=== PATIENT | female | born 1965 | race Hispanic/Latino ===

== ENCOUNTER 2017-10-15 12:55 | Emergency (ER) | payer MEDICAID, OTHER ==
[~2017-10-15 12:55] MED LIST: AMOX-429 PO; ASPI-1012 PO; CAPT50TA3 PO; CIPOTIC OT; LISI-617 PO; METF10004 PO; PRAV20TA4 PO
== END 2017-10-15 14:53 | disposition home or self-care (01) ==
LOC: EDH 12:55
DX: S60.222A Contusion of left hand, initial encounter (principal); E11.9 Type 2 diabetes mellitus without complications; I10 Essential (primary) hypertension; Z98.890 Other specified postprocedural states; Z72.0 Tobacco use; W22.8XXA Striking against or struck by other objects, initial encounter; Y93.89 Activity, other specified; Y92.89 Other specified places as the place of occurrence of the external cause; Y99.8 Other external cause status
CPT/HCPCS: 73130

== ENCOUNTER 2017-11-03 18:28 | Emergency (ER) | payer SELFPAY ==
[2017-11-03] MEDS ORDERED: ORPHENADRINE CITRATE 30 MG/ML ML ONE (19:29)
[2017-11-03] MEDS ORDERED: ACETAMINOPHEN 325 MG TAB ONE (19:29)
[2017-11-03] MEDS ORDERED: ASPIRIN 325 MG TABLET ONE (19:29)
[2017-11-03 19:39] LABS: BASOPHILS % (AUTO) 1.1 % (0.0-5.0); EOSINOPHILS % (AUTO) 1.8 % (0.0-8.0); HEMATOCRIT 43.4 % (36-48); LYMPHOCYTES % (AUTO) 38.6 % (21.0-51.0); MEAN CORPUSCULAR HEMOGLOBIN 31.7 pg (27.0-33.0); MEAN CORPUSCULAR HGB CONC 34.8 g/dL (32.0-36.0); MEAN CORPUSCULAR VOLUME 91.1 fL (79-99); MONOCYTES % (AUTO) 6.6 % (3.0-13.0); NEUTROPHILS % (AUTO) 51.9 % (40.0-77.0); PLATELET COUNT (AUTO) 169 K/uL (130-400); RED BLOOD CELL COUNT(AUTO) 4.76 MIL/uL (4.00-5.50); RED CELL DISTRIBUTION WIDTH 13.5 % (11.0-15.5); WHITE BLOOD COUNT (AUTO) 10.2 K/uL (4.8-10.8)
[2017-11-03 19:56] LABS: APPEARANCE,URINE Clear (CLEAR); BILIRUBIN,URINE Negative (NEGATIVE); COLOR,URINE Yellow (YELLOW); GLUCOSE, URINE (UA) >=1000 mg/dL (NEGATIVE); KETONES,URINE Negative (NEGATIVE); LEUKOCYTE ESTERASE ,URINE Negative (NEGATIVE); NITRATE,URINE Negative (NEGATIVE); OCCULT BLOOD,URINE Negative (NEGATIVE); PROTEIN,URINE Negative (NEGATIVE)
[2017-11-03 19:57] LABS: INR 0.95 (0.85-1.15); PARTIAL THROMBOPLASTIN TIME 24.3 SEC (26.3-35.5)
[2017-11-03 20:03] LABS: B-TYPE NATRIURETIC PEPTIDE 11 pg/mL (0-100)
[2017-11-03 20:23] LABS: BACTERIA,URINE Rare /HPF (None Seen); RBC,URINE 0-1 /HPF (0-1); SQUAMOUS EPITHELIAL CELL,UR Rare /LPF (0-2); YEAST,URINE BUDDING Rare /HPF (None Seen)
[2017-11-03 20:29] LABS: ALANINE AMINOTRANSFERASE 21 U/L (12-78); ALBUMIN 3.3 g/dL (3.5-5.0); ASPARTATE AMINOTRANSFERASE 12 U/L (10-37); BILIRUBIN,TOTAL 0.3 mg/dL (0.2-1.0); CARBON DIOXIDE 28 mmol/L (21-32); CHLORIDE 101 mmol/L (101-111); CREATINE KINASE MB < 0.5 ng/mL (0.5-3.6); CREATINE KINASE, TOTAL 59 U/L (21-232); CREATININE 0.8 mg/dL (0.5-1.5); GLOMERULAR FILTR. RATE CALC 80 mL/min (>60); MYOGLOBIN 9 ng/mL (10-92); POTASSIUM 4.2 mmol/L (3.5-5.1); SODIUM SERUM 137 mmol/L (136-145); TOTAL PROTEIN, SERUM 6.9 g/dL (6.0-8.3); UREA NITROGEN, BLOOD 14 mg/dL (7-18)
[2017-11-03 20:40] LABS: GLUCOSE,RANDOM 411 mg/dL (70-105)
[2017-11-03] MEDS ORDERED: INSULIN HUMULIN R 100 UNIT/ML 3ML ONE (21:03)
== END 2017-11-03 22:41 | disposition home or self-care (01) ==
LOC: EDH 18:28
DX: R07.89 Other chest pain (principal); M54.2 Cervicalgia; E11.9 Type 2 diabetes mellitus without complications; I10 Essential (primary) hypertension; Z72.0 Tobacco use
CPT/HCPCS: 36415; 71045; 80053; 81001; 82550; 82553; 82948; 83874; 83880; 84484 ×2; 85025; 85610; 85730; 93005 ×2; 94761; 96361; 96374; 96375; 99285; J1815; J2360

== ENCOUNTER 2018-06-23 15:38 | Emergency (ER) | payer OTHER ==
[~2018-06-23 15:38] MED LIST changes: +METF-446 PO; -METF10004 PO
[2018-06-23] MEDS ORDERED: ASPIRIN 325 MG TABLET ONE (16:16)
[2018-06-23] MEDS ORDERED: SODIUM CHLORIDE 0.9% 1000ML 1,000 ML IV ONE ×2 (16:16→18:37)
[2018-06-23] MEDS ORDERED: NITROGLYCERIN 0.4 MG SL TAB SL ONE (16:16)
[2018-06-23 16:28] LABS: BASOPHILS % (AUTO) 0.9 % (0.0-5.0); EOSINOPHILS % (AUTO) 1.8 % (0.0-8.0); HEMATOCRIT 42.9 % (36-48); LYMPHOCYTES % (AUTO) 38.8 % (21.0-51.0); MEAN CORPUSCULAR HEMOGLOBIN 31.9 pg (27.0-33.0); MEAN CORPUSCULAR HGB CONC 34.6 g/dL (32.0-36.0); MONOCYTES % (AUTO) 7.7 % (3.0-13.0); NEUTROPHILS % (AUTO) 50.8 % (40.0-77.0); NUCLEATED RED BLOOD CELLS 0.1 % (0.0-0.19); PLATELET COUNT (AUTO) 195 K/uL (130-400); RED BLOOD CELL COUNT(AUTO) 4.66 MIL/uL (4.00-5.50); WHITE BLOOD COUNT (AUTO) 8.8 K/uL (4.8-10.8)
[2018-06-23 16:53] LABS: ALANINE AMINOTRANSFERASE 19 U/L (12-78); ALBUMIN 3.5 g/dL (3.5-5.0); ASPARTATE AMINOTRANSFERASE 11 U/L (10-37); BILIRUBIN,TOTAL 0.1 mg/dL (0.2-1.0); CARBON DIOXIDE 27 mmol/L (21-32); CHLORIDE 100 mmol/L (101-111); CREATINE KINASE MB < 0.5 ng/mL (0.5-3.6); CREATINE KINASE, TOTAL 59 U/L (21-232); CREATININE 0.6 mg/dL (0.5-1.5); GLOMERULAR FILTR. RATE CALC 111 mL/min (>60); POTASSIUM 3.8 mmol/L (3.5-5.1); SODIUM SERUM 136 mmol/L (136-145); TOTAL PROTEIN, SERUM 7.5 g/dL (6.0-8.3); UREA NITROGEN, BLOOD 12 mg/dL (7-18)
[2018-06-23 16:56] LABS: GLUCOSE,RANDOM 407 mg/dL (70-105)
[2018-06-23 17:04] LABS: INR 0.89 (0.85-1.15); PARTIAL THROMBOPLASTIN TIME 24.9 SEC (26.3-35.5); PROTHROMBIN TIME 9.4 SEC (9.6-11.6)
[2018-06-23] MEDS ORDERED: INSULIN HUMULIN R 100 UNIT/ML 3ML ONE (18:38)
[2018-06-23 19:03] LABS: APPEARANCE,URINE Clear (CLEAR); BILIRUBIN,URINE Negative (NEGATIVE); COLOR,URINE Yellow (YELLOW); GLUCOSE, URINE (UA) >=1000 mg/dL (NEGATIVE); KETONES,URINE Negative (NEGATIVE); LEUKOCYTE ESTERASE ,URINE Trace (NEGATIVE); NITRATE,URINE Negative (NEGATIVE); OCCULT BLOOD,URINE Negative (NEGATIVE); PH,URINE 5.5 (5.0-8.0); PROTEIN,URINE Negative (NEGATIVE); UROBILINOGEN,URINE 0.2 mg/dL (0.2-1.0)
[2018-06-23 19:29] LABS: RBC,URINE 0-1 /HPF (0-1)
[2018-06-23 19:30] LABS: BACTERIA,URINE Rare /HPF (None Seen); SQUAMOUS EPITHELIAL CELL,UR Rare /HPF (0-2); TRICHOMONAS,URINE Rare /LPF (None Seen)
== END 2018-06-23 20:20 | disposition home or self-care (01) ==
LOC: EDH 15:38
DX: E11.65 Type 2 diabetes mellitus with hyperglycemia (principal); R07.89 Other chest pain; R53.81 Other malaise; R53.83 Other fatigue; I10 Essential (primary) hypertension; Z72.0 Tobacco use
CPT/HCPCS: 36415; 71045; 80053; 81001; 82550; 82553; 82948; 84484 ×2; 85025; 85378; 85610; 85730; 93005; 94761; 96361; 96374; 99285; J1815; J7030 ×2

== ENCOUNTER 2018-09-30 10:25 | Emergency (ER) | payer SELFPAY ==
[2018-09-30] MEDS ORDERED: IPRATROPIUM/ALBUTEROL SULFATE 3 ML SOLUTION IH ONE (11:12)
[2018-09-30] MEDS ORDERED: ASPIRIN 325 MG TABLET ONE (11:45)
== END 2018-09-30 12:20 | disposition home or self-care (01) ==
LOC: EDH 10:25
DX: R07.89 Other chest pain (principal); R05 Cough; E11.9 Type 2 diabetes mellitus without complications; I10 Essential (primary) hypertension; E78.5 Hyperlipidemia, unspecified; Z98.890 Other specified postprocedural states; Z72.0 Tobacco use
CPT/HCPCS: 71045; 84484; 93005; 94640

== ENCOUNTER 2018-11-25 19:58 | Emergency (ER) | payer SELFPAY ==
[2018-11-25] MEDS ORDERED: ONDANSETRON ODT 4 MG TAB ONE (20:26)
[2018-11-25] MEDS ORDERED: CLINDAMYCIN HCL 150 MG CAP ONE (20:26)
== END 2018-11-25 20:46 | disposition home or self-care (01) ==
LOC: EDH 19:58
DX: N61.0 Mastitis without abscess (principal); E11.9 Type 2 diabetes mellitus without complications; E78.5 Hyperlipidemia, unspecified; I10 Essential (primary) hypertension; Z72.0 Tobacco use

== ENCOUNTER 2019-04-06 18:19 | Emergency (ER) | payer SELFPAY ==
[2019-04-06] MEDS ORDERED: ASPIRIN 325 MG TABLET ONE (18:54)
[2019-04-06] MEDS ORDERED: ACETAMINOPHEN EXTRA STRENGTH 500 MG TABLET ONE (18:54)
[2019-04-06 19:02] LABS: BASOPHILS % (AUTO) 0.8 % (0.0-5.0); EOSINOPHILS % (AUTO) 0.7 % (0.0-8.0); HEMATOCRIT 39.1 % (36-48); LYMPHOCYTES % (AUTO) 29.5 % (21.0-51.0); MEAN CORPUSCULAR HEMOGLOBIN 32.1 pg (27.0-33.0); MEAN CORPUSCULAR HGB CONC 34.4 g/dL (32.0-36.0); MEAN CORPUSCULAR VOLUME 93.5 fL (79-99); MONOCYTES % (AUTO) 8.5 % (3.0-13.0); NEUTROPHILS % (AUTO) 60.5 % (40.0-77.0); NUCLEATED RED BLOOD CELLS 0.1 % (0.0-0.19); PLATELET COUNT (AUTO) 177 K/uL (130-400); RED BLOOD CELL COUNT(AUTO) 4.18 MIL/uL (4.00-5.50); RED CELL DISTRIBUTION WIDTH 13.7 % (11.0-15.5); WHITE BLOOD COUNT (AUTO) 9.3 K/uL (4.8-10.8)
[2019-04-06 19:09] LABS: INR 0.9 (0.85-1.15); PROTHROMBIN TIME 9.5 SEC (9.6-11.6)
[2019-04-06 19:15] LABS: CREATININE 0.6 mg/dL (0.5-1.5); POTASSIUM 4.1 mmol/L (3.5-5.1)
[2019-04-06 19:25] LABS: PARTIAL THROMBOPLASTIN TIME 25.2 SEC (26.3-35.5)
[2019-04-06 19:33] LABS: ALBUMIN 2.9 g/dL (3.5-5.0); BILIRUBIN,TOTAL 0.3 mg/dL (0.2-1.0); TOTAL PROTEIN, SERUM 6.3 g/dL (6.0-8.3)
== END 2019-04-06 21:34 | disposition home or self-care (01) ==
LOC: EDH 18:19
DX: R07.89 Other chest pain (principal); K08.89 Other specified disorders of teeth and supporting structures; R05 Cough; R00.2 Palpitations; I10 Essential (primary) hypertension; E78.5 Hyperlipidemia, unspecified; E11.9 Type 2 diabetes mellitus without complications; Z98.890 Other specified postprocedural states; Z72.0 Tobacco use
CPT/HCPCS: 36415; 71045; 80053; 82550; 83874; 84484; 85025; 85610; 85730; 93005

== ENCOUNTER 2019-05-18 20:48 | Emergency (ER) | payer SELFPAY | END 2019-05-18 22:29 | disposition home or self-care (01) | LOC: EDH 20:48 | DX: R51 Headache (principal); E11.9 Type 2 diabetes mellitus without complications; E78.5 Hyperlipidemia, unspecified; I10 Essential (primary) hypertension; Z72.0 Tobacco use | CPT/HCPCS: 99281 ==

== ENCOUNTER 2019-09-03 00:02 | Inpatient (IN) | payer OTHER ==
[~2019-09-03] VITALS: Ht 160 cm; Wt 71.2 kg
[2019-09-03 01:01] LABS: APPEARANCE,URINE Clear (CLEAR); BILIRUBIN,URINE Negative (NEGATIVE); COLOR,URINE Yellow (YELLOW); GLUCOSE, URINE (UA) >=1000 mg/dL (NEGATIVE); KETONES,URINE Negative (NEGATIVE); LEUKOCYTE ESTERASE ,URINE Moderate (NEGATIVE); NITRATE,URINE Negative (NEGATIVE); OCCULT BLOOD,URINE Negative (NEGATIVE); PROTEIN,URINE Negative (NEGATIVE)
[2019-09-03 01:04] LABS: HCG,QUAL RESULT NEGATIVE (NEGATIVE)
[2019-09-03] MEDS ORDERED: ONDANSETRON HCL 4 MG/2 ML VIAL ONE (01:04)
[2019-09-03] MEDS ORDERED: DICYCLOMINE HCL 10 MG/ML 2ML AMP IM ONE (01:05)
[2019-09-03] MEDS ORDERED: KETOROLAC TROMETHAMINE 30MG/ML ONE (01:05)
[2019-09-03 01:10] LABS: BACTERIA,URINE Few /HPF (None Seen); RBC,URINE 0-1 /HPF (0-1)
[2019-09-03 01:21] LABS: BASOPHILS % (AUTO) 0.9 % (0.0-5.0); EOSINOPHILS % (AUTO) 3.1 % (0.0-8.0); HEMATOCRIT 42.3 % (36-48); LYMPHOCYTES % (AUTO) 38.9 % (21.0-51.0); MEAN CORPUSCULAR HEMOGLOBIN 32.3 pg (27.0-33.0); MEAN CORPUSCULAR HGB CONC 34.5 g/dL (32.0-36.0); MEAN CORPUSCULAR VOLUME 93.4 fL (79-99); MONOCYTES % (AUTO) 7.9 % (3.0-13.0); NEUTROPHILS % (AUTO) 49.2 % (40.0-77.0); NUCLEATED RED BLOOD CELLS 0.1 % (0.0-0.19); PLATELET COUNT (AUTO) 170 K/uL (130-400); RED BLOOD CELL COUNT(AUTO) 4.52 MIL/uL (4.00-5.50); RED CELL DISTRIBUTION WIDTH 13.2 % (11.0-15.5); WHITE BLOOD COUNT (AUTO) 9.8 K/uL (4.8-10.8)
[2019-09-03 01:23] LABS: CREATININE 0.5 mg/dL (0.5-1.5); POTASSIUM 3.7 mmol/L (3.5-5.1)
[2019-09-03 01:28] LABS: ALBUMIN 3.2 g/dL (3.5-5.0); BILIRUBIN,TOTAL 0.1 mg/dL (0.2-1.0); TOTAL PROTEIN, SERUM 7.2 g/dL (6.0-8.3)
[2019-09-03] MEDS ORDERED: ZOSYN 3.375GM+NS 50ML 50 ML IV ONE (02:17)
[2019-09-03] MEDS ORDERED: SODIUM CHLORIDE 0.9% 1000ML 1,000 ML IV ONE (02:56)
[2019-09-03] MEDS ORDERED: MORPHINE SULFATE 2 MG/ML 1ML SYG ONE (02:56)
[2019-09-03] MEDS ORDERED: MORPHINE SULFATE 2 MG/ML 1ML SYG IVP PRN (05:00)
[2019-09-03] MEDS ORDERED: ACETAMINOPHEN 325 MG TAB PO PRN ×2 (05:00)
[2019-09-03] MEDS ORDERED: ONDANSETRON HCL 4 MG/2 ML VIAL IV PRN (05:00)
[2019-09-03 05:46] VITALS: BP 111/53
[2019-09-03] MEDS: ZOSYN 3.375GM+NS 50ML 50 ML IV SCH ×2 (06:00→19:18)
[2019-09-03] MEDS: INSULIN HUMULIN R 100 UNIT/ML 3ML SQ SCH ×3 (06:00→18:00)
[2019-09-03] MEDS: SODIUM CHLORIDE 0.9% 1000ML 1,000 ML IV SCH ×2 (06:00→16:13)
[2019-09-03 07:32] VITALS: BP 102/57
--- NOTE | 2019-09-03 09:00 | NUR ---
SURGICAL CONSULT Dr. Talamantes was notified over the telephone of consult. Stated he will see patient later.
[2019-09-03] MEDS: FAMOTIDINE/PF 20 MG/2 ML VIAL IV SCH ×2 (09:42→22:08)
[2019-09-03 11:39] VITALS: BP 152/61
--- NOTE | 2019-09-03 13:42 | NUR ---
DC PLAN PER PATIENT, STATES SHE IS INDEPENDENT, LIVES WITH ADULT SON, NO PROVIDER, AND NO MEDICAL EQUIPMENT. PER PATIENT, SAFE TO RETURN HOME. SELF PAY PACKET GIVEN TO PATIENT, VERBALIZED UNDERSTANDING. Addendum: 09/03/19 at 1344 by VERONA SORENSEN RN CM Amended: Links added.
[2019-09-03 15:33] VITALS: BP 97/47
[2019-09-03 19:34] VITALS: BP 113/63
--- NOTE | 2019-09-03 19:57 | NUR ---
CONSENT Laparoscopic cholecystectomy, possible open cholecystectomy consent obtained and filed in chart. Dr. Talamantes stated surgery will be done at noon.
[2019-09-04] VITALS (25 sets, daily range): BP systolic 105–156; BP diastolic 50–90
[2019-09-04] MEDS: SODIUM CHLORIDE 0.9% 1000ML 1,000 ML IV SCH ×2 (03:48→16:52)
--- NOTE | 2019-09-04 05:44 | NUR ---
PATIENT UPDATE Pt slept well overnight, no complaints of any abdominal pain, no nausea and vomiting. Keeping npo for lap sharon possible open sharon today at noontime by Dr. Lowe. Vital signs stable, no complaints voiced out.
[2019-09-04] MEDS: INSULIN HUMULIN R 100 UNIT/ML 3ML SQ SCH ×4 (06:00→17:02)
[2019-09-04] MEDS: ZOSYN 3.375GM+NS 50ML 50 ML IV SCH ×2 (06:03→17:50)
[2019-09-04 06:33] LABS: EOSINOPHILS % (AUTO) 2.8 % (0.0-8.0); HEMATOCRIT 39.6 % (36-48); MEAN CORPUSCULAR HEMOGLOBIN 31.8 pg (27.0-33.0); MEAN CORPUSCULAR VOLUME 93.5 fL (79-99); MONOCYTES % (AUTO) 6.6 % (3.0-13.0); NEUTROPHILS % (AUTO) 44.6 % (40.0-77.0); PLATELET COUNT (AUTO) 158 K/uL (130-400); RED BLOOD CELL COUNT(AUTO) 4.23 MIL/uL (4.00-5.50); RED CELL DISTRIBUTION WIDTH 13.3 % (11.0-15.5); WHITE BLOOD COUNT (AUTO) 7.4 K/uL (4.8-10.8)
[2019-09-04 06:42] LABS: INR 1.01 (0.85-1.15); PARTIAL THROMBOPLASTIN TIME 25.7 SEC (26.3-35.5); PROTHROMBIN TIME 10.6 SEC (9.6-11.6)
[2019-09-04 06:45] LABS: BILIRUBIN,TOTAL 0.3 mg/dL (0.2-1.0); CREATININE 0.4 mg/dL (0.5-1.5); POTASSIUM 3.8 mmol/L (3.5-5.1); TOTAL PROTEIN, SERUM 6.5 g/dL (6.0-8.3)
[2019-09-04 06:53] LABS: HEMOGLOBIN A1C 10.4 % (4.0-6.0)
[2019-09-04] MEDS: FAMOTIDINE/PF 20 MG/2 ML VIAL IV SCH ×2 (08:18→20:18)
[2019-09-04] MEDS ORDERED: SUCCINYLCHOLINE 200MG/10ML SYR ONE (13:41)
[2019-09-04] MEDS ORDERED: LIDOCAINE PF 2% 5ML ABBOJECT ONE (13:41)
[2019-09-04] MEDS ORDERED: PROPOFOL 10 MG/ML 20ML VIAL IV ONE (13:41)
[2019-09-04] MEDS ORDERED: ROCURONIUM 10MG/1ML SYR 10 MG/ML ML ONE (13:42)
[2019-09-04] MEDS ORDERED: FENTANYL CITRATE PF 50 MCG/1 ML 2ML VIAL ONE ×2 (13:42→15:29)
[2019-09-04] MEDS ORDERED: LIDOCAINE 1%-EPI 1:100,000 20 ML VIAL IJ ONE (14:12)
[2019-09-04] MEDS ORDERED: BUPIVACAINE/PF 0.25% 30ML VIAL IJ ONE (14:12)
[2019-09-04] MEDS ORDERED: GLYCOPYRROLATE 1 MG/5 ML SYRINGE ONE (14:38)
[2019-09-04] MEDS ORDERED: NEOSTIGMINE 5MG/5ML SYR IV ONE (14:38)
[2019-09-04] MEDS ORDERED: KETOROLAC TROMETHAMINE 30MG/ML ONE (14:38)
[2019-09-04] MEDS ORDERED: ONDANSETRON HCL 4 MG/2 ML VIAL ONE (14:39)
[2019-09-04] MEDS ORDERED: MEPERIDINE-PF 25 MG/ML SYG ONE ×2 (15:07→15:18)
[2019-09-04] MEDS ORDERED: OXYCODONE/ACETAMIN 5/325MG TAB PO PRN (16:15)
[2019-09-05 00:22] VITALS: BP 115/66
[2019-09-05 04:09] VITALS: BP 125/66
[2019-09-05 05:26] LABS: BASOPHILS % (AUTO) 0.7 % (0.0-5.0); EOSINOPHILS % (AUTO) 1.5 % (0.0-8.0); HEMATOCRIT 36.2 % (36-48); LYMPHOCYTES % (AUTO) 36.1 % (21.0-51.0); MEAN CORPUSCULAR HEMOGLOBIN 31.6 pg (27.0-33.0); MEAN CORPUSCULAR HGB CONC 34.1 g/dL (32.0-36.0); MEAN CORPUSCULAR VOLUME 92.5 fL (79-99); MONOCYTES % (AUTO) 8.3 % (3.0-13.0); NEUTROPHILS % (AUTO) 53.4 % (40.0-77.0); PLATELET COUNT (AUTO) 176 K/uL (130-400); RED BLOOD CELL COUNT(AUTO) 3.91 MIL/uL (4.00-5.50); RED CELL DISTRIBUTION WIDTH 13.1 % (11.0-15.5); WHITE BLOOD COUNT (AUTO) 8.5 K/uL (4.8-10.8)
[2019-09-05 05:53] LABS: ALBUMIN 2.8 g/dL (3.5-5.0); BILIRUBIN,TOTAL 0.4 mg/dL (0.2-1.0); CREATININE 0.4 mg/dL (0.5-1.5); POTASSIUM 3.5 mmol/L (3.5-5.1); TOTAL PROTEIN, SERUM 5.9 g/dL (6.0-8.3)
[2019-09-05] MEDS: ZOSYN 3.375GM+NS 50ML 50 ML IV SCH (06:32)
[2019-09-05] MEDS: INSULIN HUMULIN R 100 UNIT/ML 3ML SQ SCH ×4 (06:33→17:10)
--- NOTE | 2019-09-05 07:00 | NUR ---
S/P LAP KIMBERLEE-PATIENT WITH ACTIVE BOWEL SOUNDS, PASSING GAS, DENIES N/V, HAS WALKED X3 DURING NOC SHIFT AND DID NOT VOICE NEED FOR PAIN MEDICATION THROUGHOUT SHIFT. HAS TOLERATED CLEAR LIQUIDS WELL AND WILL ADVANCE TO FULL LIQUID DIET FOR BREAKFAST. WILL CONTINUE TO MONITOR.
[2019-09-05 08:00] VITALS: BP 144/70
[2019-09-05] MEDS: FAMOTIDINE/PF 20 MG/2 ML VIAL IV SCH (08:08)
[2019-09-05] MEDS: SODIUM CHLORIDE 0.9% 1000ML 1,000 ML IV SCH (09:30)
[2019-09-05] MEDS ORDERED: POTASSIUM CHLORIDE 10% ELIXIR 20 MEQ/15 ML UDCUP PO SCH (09:45)
[2019-09-05 12:00] VITALS: BP 154/69
[2019-09-05] MEDS ORDERED: LEVOFLOXACIN 500 MG TABLET PO SCH (14:30)
[2019-09-05] MEDS ORDERED: LEVO250T59 PO (14:34)
[2019-09-05 16:00] VITALS: BP 120/62
--- NOTE | 2019-09-05 18:30 | NUR ---
PATIENT DISCHARGE PATIENT DISCHARGE, IV DISCONTINUED, CATHLON INTACT, BLEEDING CONTROLLED, PATIENT TOLERATED WITHOUT INCIDENT. PATIENT GIVEN DIRECTION ON DAILY WOUND CARE AND PROVIDED WITH BAND-AIDS x4. PATIENT STATED SHE UNDERSTOOD AND HAD NO FURTHER QUESTIONS.
== END 2019-09-05 18:45 | disposition home or self-care (01) | DRG 418 ==
LOC: EDH 00:02 → EDHIP 00:03 → 3AH 05:30
PROVIDERS: ADMIT Internal Medicine; ATTEND Internal Medicine
PROC: 0FT44ZZ Resection of Gallbladder, Percutaneous Endoscopic Approach (ICD-10-PCS; principal; 2019-09-04 14:15)
DX: K80.00 Calculus of gallbladder with acute cholecystitis without obstruction (principal); N39.0 Urinary tract infection, site not specified; E11.65 Type 2 diabetes mellitus with hyperglycemia; I10 Essential (primary) hypertension; E78.5 Hyperlipidemia, unspecified; K82.8 Other specified diseases of gallbladder; F17.200 Nicotine dependence, unspecified, uncomplicated; Z83.3 Family history of diabetes mellitus; Z80.42 Family history of malignant neoplasm of prostate; Z82.5 Family history of asthma and other chronic lower respiratory diseases; Z82.49 Family history of ischemic heart disease and other diseases of the circulatory system
CPT/HCPCS: 36415; 76705; 80053; 80061; 81001; 81025; 82948; 83036; 83690; 84484; 85025; 85610; 85730; 88304; 93005; G0378; J0330; J0500; J1815; J1885; J2001; J2175; J2405; J2543; J2704; J2710; J3010; J3490; J7030

== ENCOUNTER 2020-07-22 12:01 | Emergency (ER) | payer SELFPAY ==
[~2020-07-22 12:01] MED LIST changes: -AMOX-429 PO; +LEVO250T59 PO
[2020-07-22] MEDS ORDERED: ACETAMINOPHEN EXTRA STRENGTH 500 MG TABLET ONE (12:25)
== END 2020-07-22 13:06 | disposition home or self-care (01) ==
LOC: EDH 12:01
DX: S02.2XXA Fracture of nasal bones, initial encounter for closed fracture (principal); S80.02XA Contusion of left knee, initial encounter; E11.9 Type 2 diabetes mellitus without complications; E78.5 Hyperlipidemia, unspecified; I10 Essential (primary) hypertension; Z90.49 Acquired absence of other specified parts of digestive tract; Z98.890 Other specified postprocedural states; Z72.0 Tobacco use; W18.39XA Other fall on same level, initial encounter; Y93.01 Activity, walking, marching and hiking; Y92.89 Other specified places as the place of occurrence of the external cause; Y99.8 Other external cause status
CPT/HCPCS: 73562